=== PATIENT | female | born 1965 | race Caucasian/White ===

== ENCOUNTER 2019-10-08 07:41 | Day surgery (SDC) | payer BC ==
[~2019-10-08] VITALS: Ht 173 cm; Wt 93.2 kg
[~2019-10-08 07:41] MED LIST: ALEVE220 MG PO; CODGUAEL PO; CYCL10 PO; DIAZ5 PO; FAMO20 PO; IBUP600 PO; LORA10ER PO; NAPR550 PO; OXYACE5T PO; RANI150 PO; RXCODGUASY PO
--- NOTE | 2019-10-08 09:20 | NUR ---
History, Chart, Medications and Allergies reviewed before start of procedure. PATIENT TOLERATED PROCEDURE WELL. Discharge instructions reviewed with patient. Patient verbalizes understanding. Copy given to patient to take home. PATIENT AMBULATED OUT WITH FAMILY
== END 2019-10-08 23:00 | disposition home or self-care (01) ==
LOC: CT 07:41 → ORD 07:41 → CT 09:00 → ORD 23:00
DX: I25.10 Atherosclerotic heart disease of native coronary artery without angina pectoris (principal); Q24.5 Malformation of coronary vessels; I42.1 Obstructive hypertrophic cardiomyopathy; I10 Essential (primary) hypertension; E78.5 Hyperlipidemia, unspecified; F17.210 Nicotine dependence, cigarettes, uncomplicated; Z79.82 Long term (current) use of aspirin; Z79.899 Other long term (current) drug therapy; Z91.030 Bee allergy status
CPT/HCPCS: 75574; Q9967